=== PATIENT | female | born 1985 | race Caucasian/White ===

== ENCOUNTER 2017-04-22 10:00 | Outpatient (CLI) | payer BC ==
--- NOTE | 2017-04-22 13:39 | CT ---
CT ABDOMEN WITH IV CONTRAST: Date: 04-22-17 History: Right sided abdominal mass on physical examination, pelvic swelling. History of prior C-sect ion. FINDINGS: Images were not obtained through the pelvis. There is mild dependent bibasilar atelectasis. There is a subcentimeter too small to characterize hypodense lesion seen in the left aspect of the do me of the liver. The liver is otherwise normal in appearance. The spleen, pancreas, bilateral adrenal glands, kidneys, abdominal aorta and opacified bowel demonstr ate a normal CT appearance. The appendix is visualized and normal in caliber. There is a moderate amount of retained fecal material seen throughout the visualized colon. No mass o r lymphadenopathy is seen in the abdomen or pelvis. No free fluid or fluid collection is identified. There is a trace amount of free fluid seen in the limited visualized cul-de-sac which is probably phy siologic in origin. IMPRESSION: 1. No acute findings in the abdomen. No mass or fluid collection is seen in the abdomen or pelvis, an d there is no lymphadenopathy. 2. Moderate amount of retained fecal material suggesting constipation. POS: JUAN
== END 2017-04-22 10:01 | disposition home or self-care (01) ==
LOC: CT 10:00
DX: R19.09 Other intra-abdominal and pelvic swelling, mass and lump (principal)
CPT/HCPCS: 74160

== ENCOUNTER 2018-06-21 05:27 | Inpatient (IN) | payer BC ==
[2018-06-21] MEDS: Lactated Ringer's 1,000 ML IV SCH ×2 (06:00→07:08)
[2018-06-21] MEDS ORDERED: CEFAZOLIN/Water 2 GM/20 ML SYRINGE SLOW IVP SCH (06:06)
[2018-06-21] MEDS ORDERED: Promethazine HCl 25 MG/ML VIAL IM PRN ×2 (06:06→08:05)
[2018-06-21] MEDS ORDERED: Ondansetron PF 4 MG/2 ML Vial IVP PRN ×3 (06:06→08:54)
[2018-06-21] MEDS ORDERED: CEFAZOLIN 2 GM/50 ML-DEXTROSE 2 GM in Premix Bag 1 BAG IVPB SCH (06:15)
[2018-06-21] MEDS ORDERED: Bicitra 30 ML UDCUP PO SCH (06:15)
[2018-06-21 06:18] VITALS: BMI 44.4
[2018-06-21 06:21] LABS: Hemoglobin 13.2 g/dL (12.0-16.0); Mean Corpuscular HGB CONC 35.9 g/dL (32.0-36.0); Mean Corpuscular Hemoglobin 34.4 pg (27.0-31.0); Mean Corpuscular Volume 95.9 fL (78.0-98.0); Mean Platelet Volume 6.9 fL (7.4-10.4); Platelet Count 241 thou/uL (130-400); RBC Distribution Width 11.5 % (11.5-14.5); Red Blood Cell (RBC) Count 3.82 mill/uL (4.20-5.40); White Blood Cell (WBC) Count 11.1 thou/uL (4.8-10.8)
[2018-06-21] MEDS ORDERED: Morphine PF 1 MG/ML SYR ONE (06:52)
[2018-06-21] MEDS ORDERED: Fentanyl 100 MCG/2 ML VIAL ONE (06:52)
[2018-06-21] MEDS ORDERED: Atropine Sulfate 0.4 mg/1 ml Vial ONE (06:53)
[2018-06-21] MEDS ORDERED: Ketorolac Tromethamine 30 MG/ML VIAL ONE ×2 (06:53→10:12)
[2018-06-21] MEDS ORDERED: Ondansetron PF 4 MG/2 ML Vial ONE ×2 (06:53→10:12)
[2018-06-21] MEDS ORDERED: ePHEDrine/0.9% NaCl/PF SYRINGE 50 mg/10 ml ONE ×2 (06:53→10:12)
[2018-06-21] MEDS ORDERED: PHENYLEPHRINE-NS 100 MCG/ML 10 ML SYRINGE ONE ×3 (06:53→10:12)
[2018-06-21] MEDS ORDERED: Oxytocin 10 UNITS/ML VIAL ONE (06:53)
[2018-06-21 06:58] LABS: HBSAg Index 0.19 S/CO (0-0.99); Hep B Surf Ag Non-Reactive S/CO (NonReactive)
[2018-06-21 07:03] LABS: Syphilis Antibody Nonreactive (Nonreactive); Syphilis Antibody Index 0.04 S/CO (<1.00 Non-Reactive)
[2018-06-21] MEDS ORDERED: Dexamethasone 4 mg/ml Vial ONE (07:12)
[2018-06-21] MEDS ORDERED: Metoclopramide HCl 10 MG/2 ML VIAL ONE ×2 (07:12→10:12)
[2018-06-21] MEDS ORDERED: Eucerin (Mineral Oil/Petrolatum,White) 30 gm Jar TOP PRN (08:05)
[2018-06-21] MEDS ORDERED: diphenhydrAMINE 50 MG/ML VIAL IVP PRN (08:05)
[2018-06-21] MEDS ORDERED: Ondansetron HCl/PF 4 MG/2 ML Vial IVP PRN (08:05)
[2018-06-21] MEDS ORDERED: Ketorolac Tromethamine 30 MG/ML VIAL IVP PRN (08:05)
[2018-06-21] MEDS ORDERED: Naloxone HCl 0.4 mg/ml Vial IV PRN (08:05)
[2018-06-21] MEDS ORDERED: HYDROmorphone 2 MG/ML VIAL SLOW IVP PRN (08:05)
[2018-06-21] MEDS ORDERED: Meperidine HCl/PF 25 MG/ML VIAL SLOW IVP PRN (08:05)
[2018-06-21] MEDS ORDERED: L&D-Morphine 4 MG/ML VIAL SLOW IVP PRN (08:05)
[2018-06-21] MEDS ORDERED: Naloxone HCl 0.4 mg/ml Vial IVP PRN ×2 (08:05)
[2018-06-21] MEDS ORDERED: Promethazine HCl 25 MG SUPP PR PRN (08:05)
[2018-06-21] MEDS ORDERED: Communication Order-Pharmacy FS SCH (08:15)
[2018-06-21] MEDS ORDERED: Ketorolac Tromethamine 30 MG/ML VIAL IVP SCH (08:15)
[2018-06-21] MEDS ORDERED: Meperidine HCl/PF 25 MG/ML VIAL IM PRN ×2 (08:54→20:30)
[2018-06-21] MEDS ORDERED: Lanolin Ointment 7 GM TUBE TOP PRN (08:54)
[2018-06-21] MEDS ORDERED: Bisacodyl 10 MG SUPP PR PRN (08:54)
[2018-06-21] MEDS ORDERED: Adacel (T-DAP) 0.5 ML SYRINGE IM ONE (08:54)
[2018-06-21] MEDS ORDERED: Acetaminophen 325 MG TAB PO PRN (08:54)
[2018-06-21] MEDS ORDERED: diphenhydrAMINE 25 MG CAP PO PRN (08:54)
[2018-06-21] MEDS ORDERED: Misoprostol 200 MCG TAB PR PRN (08:54)
[2018-06-21] MEDS ORDERED: Lactated Ringer's 1,000 ML IV SCH (09:00)
[2018-06-21] MEDS ORDERED: NS / Oxytocin 40 units/1000ml 1,000 ML IV SCH (09:00)
[2018-06-21] MEDS ORDERED: Dexamethasone 20 MG/5 ML VIAL ONE (10:12)
[2018-06-21] MEDS: Docusate Calcium (SURFAK) 240 MG CAP PO SCH ×2 (11:21→20:55)
[2018-06-21] MEDS: Ferrous Sulfate 325 MG TAB PO SCH (11:21)
[2018-06-21] MEDS: Prenatal Vitamin 1 TAB PO SCH (11:21)
[2018-06-21] MEDS: Ibuprofen 800 MG TAB PO SCH (14:04)
--- NOTE | 2018-06-21 14:18 | OP ---
DATE OF PROCEDURE: 06/21/2018 ACCIDENT REPORT CLERK SURGEON: Chioma Koo MD SUPERVISOR SHIPFITTERS: Shantanu Dukes MD PREOPERATIVE DIAGNOSES: 1. intrauterine at 39 weeks. 2. Prior section. 3. Declines trial of labor. POSTOPERATIVE DIAGNOSES: 1. intrauterine at 39 weeks. 2. Prior section. 3. Declines trial of labor. PROCEDURES PERFORMED: Repeat low-transverse section. ANESTHESIA: Spinal catheterization. FINDINGS: 1. Minimal scarring and adhesions secondary to previous adhesion prevention measures. 2. Vigorous female infant, 8 pounds and 4 ounces. Apgars 8 and 9. 3. Normal uterus, tubes, and ovaries. COMPLICATIONS: None. SPECIMENS REMOVED: Cord blood. ESTIMATED BLOOD LOSS: Approximately 500 mL (QBL equal 485 mL). DESCRIPTION OF PROCEDURE: After thorough consent and counseling, Ms. York was taken to the operating room and an adequate level of anesthesia was obtained via spinal catheterization. The patient was prepped and draped in the usual sterile fashion for abdominal surgery. A Ceja was placed in the bladder, which was noted to be draining clear urine. Attention was then turned to performing the repeat low-transverse section. A Pfannenstiel incision was made and carried sharply to the fascia, which was also sharply incised. The old scar was excised. The midline was identified and the rectus muscles were retracted laterally. The abdominal peritoneal cavity was entered with the usual safeguards carried out. A retractor was placed and the bladder flap was created on the vesicouterine peritoneum. A bladder blade was then placed. A low-transverse incision was made on the well-developed lower uterine segment. Upon entering the amniotic sac, a copious amount of clear amniotic fluid was visualized. The was noted to be vertex presentation in the occiput transverse position. Head was delivered and baby was bulb suctioned on the abdomen. Shoulders and body were then delivered in an atraumatic fashion. The cord was doubly clamped and cut and the infant was handed to the Pediatric Team in attendance for the delivery. The was a vigorous viable female, weighing 8 pounds and 4 ounces with Apgars of 8 and 9 obtained at 1 and 5 minutes respectively. Cord blood was obtained. The placenta was manually removed from the uterus. The uterus was exteriorized and good tone was noted. The uterine cavity was cleared of any remaining clot and fluid. The low-transverse incision was closed with a running locking ligature of #1 chromic. Several [id number] ligatures of #1 chromic were placed to maintain hemostasis and enhance strength and integrity. The vesicouterine peritoneum was closed with running locking ligature of 3-0 Monocryl. The incision was carefully inspected and noted to be hemostatic. The posterior cul-de-sac and gutters were cleared of clot and fluid. The uterus, fallopian tubes, and ovaries were carefully inspected and noted to be normal. Seprafilm was applied to the low-transverse incision and the anterior aspect of the uterus for adhesion prevention. The uterus was returned to the abdomen. Good tone and hemostasis were noted. Lap, sponge, and needle counts were correct. The peritoneum was closed with a running ligature of 2-0 Vicryl. The rectus muscles were reapproximated in the midline with interrupted ligatures of 2-0 Vicryl and #1 chromic suture. The fascia was closed with 2 ligatures of 0 Vicryl suture, which were tied in the midline. Good fascial integrity was appreciated. The incision was irrigated with copious amount of warm normal saline. Hemostasis was obtained with Bovie cauterization. The subcutaneous tissue was then closed with interrupted ligatures of 2-0 plain. The incision was then closed with subcuticular stitch of 4-0 Monocryl and dressed with Dermabond. Laps, sponge, and needle counts were correct x3. Estimated blood loss during the surgical procedure was approximately 500 mL (QBL 485 mL). A pressure dressing and ice packs were subsequently placed. Immediately following the surgery, the patient and family were made aware of the surgical procedure and operative findings. Questions were answered to their satisfaction. The patient and her were very appreciative of the care rendered here at [facility] this morning. Mother and baby were doing well postoperatively. Job ID: [id number]
[2018-06-21] MEDS ORDERED: Acetaminophen/Codeine 30-300mg Tablet PO PRN ×2 (20:30)
[2018-06-21] MEDS ORDERED: Zolpidem Tartrate 5 MG TAB PO PRN (20:30)
[2018-06-21] MEDS: Simethicone Chewable 80 MG TAB PO PRN (20:54)
[2018-06-22] MEDS: Ferrous Sulfate 325 MG TAB PO SCH ×2 (03:06→08:50)
[2018-06-22] MEDS: Ibuprofen 800 MG TAB PO SCH ×4 (03:06→18:44)
[2018-06-22] MEDS ORDERED: Sodium Chloride 0.9% 10 ML ONE ×2 (03:26→03:28)
[2018-06-22] MEDS: Simethicone Chewable 80 MG TAB PO PRN ×2 (03:40→20:04)
[2018-06-22 05:53] LABS: Hemoglobin 12.2 g/dL (12.0-16.0); Mean Corpuscular HGB CONC 34.9 g/dL (32.0-36.0); Mean Corpuscular Hemoglobin 33.7 pg (27.0-31.0); Mean Corpuscular Volume 96.7 fL (78.0-98.0); Platelet Count 218 thou/uL (130-400); RBC Distribution Width 11.6 % (11.5-14.5); Red Blood Cell (RBC) Count 3.61 mill/uL (4.20-5.40); White Blood Cell (WBC) Count 14.7 thou/uL (4.8-10.8)
[2018-06-22] MEDS: Prenatal Vitamin 1 TAB PO SCH (08:21)
[2018-06-22] MEDS: Docusate Calcium (SURFAK) 240 MG CAP PO SCH ×2 (08:22→21:20)
[2018-06-22] MEDS: traMADol HCl 50 MG TAB PO PRN ×2 (11:49→16:26)
[2018-06-23] MEDS: Ferrous Sulfate 325 MG TAB PO SCH ×2 (01:08→09:30)
[2018-06-23] MEDS: traMADol HCl 50 MG TAB PO PRN ×2 (03:25→09:39)
[2018-06-23] MEDS: Simethicone Chewable 80 MG TAB PO PRN (03:32)
[2018-06-23] MEDS: Ibuprofen 800 MG TAB PO SCH ×2 (05:16→13:55)
[2018-06-23 08:17] VITALS: BP 132/81; TEMP 98
[2018-06-23] MEDS: Docusate Calcium (SURFAK) 240 MG CAP PO SCH (09:37)
[2018-06-23] MEDS: Prenatal Vitamin 1 TAB PO SCH (10:37)
== END 2018-06-23 14:30 | disposition home or self-care (01) | DRG 788 ==
LOC: L&D 05:27 → 3SW 11:28
PROVIDERS: ADMIT Obstetrics & Gynecology; ATTEND Obstetrics & Gynecology
PROC: 10D00Z1 Extraction of Products of Conception, Low, Open Approach (ICD-10-PCS; principal; 2018-06-21)
PROC: 3E0P05Z Introduction of Adhesion Barrier into Female Reproductive, Open Approach (ICD-10-PCS; 2018-06-21)
DX: O34.211 Maternal care for low transverse scar from previous cesarean delivery (principal); Z3A.39 39 weeks gestation of pregnancy; Z37.0 Single live birth; O99.89 Other specified diseases and conditions complicating pregnancy, childbirth and the puerperium; N73.6 Female pelvic peritoneal adhesions (postinfective)
CPT/HCPCS: 36415; 51702; 85027; 86780; 86850; 86900; 86901; 87340; J0461; J1100; J1885; J2274; J2405; J2590; J2765; J3010